=== PATIENT | female | born 1985 | race Caucasian/White ===

== ENCOUNTER 2020-05-17 14:50 | Emergency (ER) | payer OTHER ==
[~2020-05-17] VITALS: Ht 172.7 cm; Wt 145.1 kg
[2020-05-17 15:07] VITALS: BP 116/77
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
[2020-05-17] MEDS ORDERED: NACL 0.9% 1,000 ML IV ONE (15:40)
[2020-05-17] MEDS ORDERED: KETOROLAC 30 MG/ML VIAL IM/IVP ONE (15:40)
[2020-05-17 16:27] LABS: BASOPHILS # (AUTO) 0.1 K/uL (0.00-0.22); BASOPHILS % (AUTO) 0.6 % (0.0-2.0); EOSINOPHILS # (AUTO) 0.1 K/uL (0-0.4); EOSINOPHILS % (AUTO) 1.4 % (0.0-4.0); HEMOGLOBIN 13.8 g/dL (12.0-16.0); LYMPHOCYTES # (AUTO) 2.9 K/uL (2.5-16.5); LYMPHOCYTES % (AUTO) 34.1 % (20.5-51.1); MEAN CORPUSCULAR HEMOGLOBIN 30 pg (27-31); MEAN CORPUSCULAR HGB CONC 34 g/dL (33-37); MEAN CORPUSCULAR VOLUME 88.8 fL (80-94); MONOCYTES # (AUTO) 0.7 K/uL (0.8-1.0); MONOCYTES % (AUTO) 7.7 % (1.7-9.3); NEUTROPHILS # (AUTO) 4.8 K/uL (1.8-7.7); NEUTROPHILS % (AUTO) 56.2 % (42.2-75.2); PLATELET COUNT (AUTO) 197 K/uL (140-450); RED BLOOD CELL COUNT(AUTO) 4.61 MIL/uL (4.20-5.40); RED CELL DISTRIBUTION WIDTH 13.4 % (11.6-13.7); WHITE BLOOD COUNT (AUTO) 8.6 K/uL (4.8-10.8)
[2020-05-17 16:32] LABS: APPEARANCE,URINE CLEAR (CLEAR); BILIRUBIN,URINE NEGATIVE (NEGATIVE); BLOOD, URINE NEGATIVE (NEGATIVE); COLOR,URINE YELLOW (YELLOW); LEUKOCYTE ESTERASE ,URINE TRACE (NEGATIVE); NITRITE, URINE NEGATIVE (NEGATIVE); UGLUCOSE NEGATIVE (NEGATIVE)
[2020-05-17 16:40] LABS: RBC,URINE 0 /HPF (0-5); WBC,URINE 0-5 /HPF (0-5)
[2020-05-17 16:48] LABS: ALBUMIN 3.6 g/dL (3.4-5.0); ANION GAP 11.9 (8-16); POTASSIUM 3.9 mmol/L (3.5-5.1); TOTAL BILIRUBIN 0.3 mg/dL (0.0-1.0)
--- NOTE | 2020-05-17 17:23 | NUR ---
PT TAKEN TO CT VIA WHEELCHAIR
[2020-05-17] MEDS ORDERED: ONDANSETRON 4 MG/2 ML VIAL IVP ONE (18:05)
[2020-05-17] MEDS ORDERED: MORPHINE SULFATE 4 MG/ML SYR IVP ONE (18:05)
[2020-05-17 18:37] VITALS: BP 142/78
--- NOTE | 2020-05-17 18:38 | NUR ---
Patient discharged with v/s stable. Written and verbal after care instructions given and explained. Patient alert, oriented and verbalized understanding of instructions. Ambulatory with steady gait. All questions addressed prior to discharge. ID band removed. Patient advised to follow up with PMD. Rx of NORCO ZOFRAN given. Patient educated on indication of medication including possible reaction and side effects. Opportunity to ask questions provided and answered.
--- NOTE | 2020-05-19 22:11 | NUR ---
LATE ENTRY--- NS BOLUS DISCONTINUED AT 1700
== END 2020-05-17 18:38 | disposition home or self-care (01) ==
LOC: MED 15:05
DX: M54.5 Low back pain (principal)
CPT/HCPCS: 36415; 74176; 80053; 81001; 84702; 85025; 96361; 96374; 96375; 99284; J1885; J2270; J2405; J7030